=== PATIENT | male | born 1965 | race African-American/Black ===

== ENCOUNTER 2018-01-29 10:44 | Inpatient (IN) | payer BC, OTHER ==
--- NOTE | 2018-01-29 11:03 | PDOC ---
History of Present Illness - General Stated Complaint: FACIAL DROOP, IRREGULAR HEART BEAT Time Seen by Provider: 01/29/18 11:03 - History of Present Illness Initial Comments: 52 year old male with PMH of HTN, vertigo, and cervical spine disease presenting with left eye droop and left sided facial parasthesias at 10:42 which mostly self resolved after a few seconds. However, he is still complaining of some left sided facial paresthesias on on interview. 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 He also has a right femoral stent for difficulty walking in the past. 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 Denies any headache, visual symptoms, chest pain, SOB, weakness, or other symptoms. 01/29/18 12:06 NIH Stroke Scale - Last Known Well Date/Time & Onset Date Last Known Well: 01/29/18 Time Last Known Well: 10:41 - Initial Evaluation Level of consciousness: Alert Ask patient the month and their age: Answers both correctly Ask patient to open & close eyes; make fist and let go: Obeys both correctly Best gaze (horizontal eye movement): Normal Visual field testing: No visual field loss Facial paresis (Show teeth/raise eyebrows/close eyes tight): Normal symmetrical movement Motor Function: Left Arm: Normal Motor Function: Right Arm: Normal (extends arm 90 (or 45) degrees for 10 seconds without drift Motor Function: Left Leg: Normal (extends leg 30 degrees for 5 seconds without drift) Motor Function: Right Leg: Normal (extends leg 30 degrees for 5 seconds without drift) Limb Ataxia: No ataxia Sensory(Use pinprick test arms,legs,trunk,face/side to side): Mild to moderate decrease in sensation (Sensation at his baseline but states he has crhonic paresthesias in his left arm and a new paresthesia on the left side of his face. ) Best language (Describe picture, name items, read sentences): No Aphasia Dysarthria (read several words): Normal articulation Extinction and Inattention: No abnormality - Total Score NIH Stroke Scale Score: 1 Past History - Past Medical History Allergies/Adverse Reactions: Allergies Allergy/AdvReac Type Severity Reaction Status Date / Time Penicillins Allergy Verified 01/29/18 10:52 Home Medications: Ambulatory Orders Hydrochlorothiazide [Hctz -] 25 mg PO DAILY 01/29/18 COPD: No HTN: Yes - Surgical History Gastric Stapling: Yes (lap band) - Suicide/Smoking/Psychosocial Hx Smoking History: Never smoked Substance Use Type: Alcohol Review of Systems - Review of Systems Constitutional: No: Chills, Diaphoresis, Fever, Loss of Appetite HEENTM: No: Eye Pain, Blurred Vision, Tearing, Double Vision Respiratory: No: Cough, Orthopnea, Shortness of Breath Cardiac (ROS): No: Chest Pain, Edema, Irregular Heart Rate ABD/GI: No: Diarrhea, Nausea, Poor Appetite, Vomiting : No: Dysuria, Discharge Musculoskeletal: No: Muscle Pain, Muscle Weakness Integumentary: No: Bruising, Lesions, Lumps Neurological: Yes: Paresthesia. No: Headache, Numbness, Tingling, Weakness, Unsteady Gait, Ataxia, Dizziness Psychiatric: Yes: Anxiety Endocrine: No: Increased Hunger, Increased Thirst Hematologic/Lymphatic: No: Anemia, Easy Bruising, Bleeding Diathesis *Physical Exam - Vital Signs Last Vital Signs Temp Pulse Resp BP Pulse Ox 98 F 82 18 145/86 99 01/29/18 10:47 01/29/18 10:47 01/29/18 10:47 01/29/18 10:47 01/29/18 10:47 - Physical Exam General Appearance: Yes: Nourished, Appropriately Dressed. No: Apparent Distress HEENT: positive: EOMI, BRANDY, Normal ENT Inspection, Normal Voice Neck: positive: Trachea midline, Normal Thyroid, Supple. negative: Tender, Rigid Respiratory/Chest: positive: Lungs Clear, Normal Breath Sounds. negative: Chest Tender, Respiratory Distress, Accessory Muscle Use Cardiovascular: positive: Regular Rhythm Gastrointestinal/Abdominal: positive: Normal Bowel Sounds, Flat, Soft. negative : Tender Lymphatic: negative: Adenopathy, Tenderness Musculoskeletal: positive: Normal Inspection. negative: CVA Tenderness Extremity: positive: Normal Capillary Refill, Normal Inspection, Normal Range of Motion. 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 Head CT negative and labs WNL. Dr. Rodney and Dr. Ortiz evaluated patient and he is being admitted for stroke workup. EKG showing rate 81, AK 162, QRS 92, QTc 429, and normal axis without ST or T wave changes. 01/29/18 13:15 *DC/Admit/Observation/Transfer Diagnosis at time of Disposition: TIA (transient ischemic attack), Palpitation HTN (hypertension) Qualifiers: Hypertension type: essential hypertension Qualified Code(s): I10 - Essential ( primary) hypertension - Discharge Dispostion Condition at time of disposition: Stable Decision to Admit order: Yes - Referrals - Patient Instructions - Post Discharge Activity
[2018-01-29] MEDS ORDERED: SODIUM CHLORIDE 1,000 ML IV SCH (11:30)
--- NOTE | 2018-01-29 11:43 | PDOC ---
Attending Attestation - Resident Resident Name: Georges Lopez - ED Attending Attestation I have performed the following: I have examined & evaluated the patient, The case was reviewed & discussed with the resident, I agree w/resident's findings & plan, Exceptions are as noted - HPI HPI: 01/29/18 11:36 52yo M hx HTN, intermittent palpitations, throat ca 2yrs ago (now in remission) presents with 1 minute of L eyelid drooping at 10:42A that has resolved since. Pt also reports palpitaitons and found his HR jumped from 80s to 120s. Currently states the L side of his face feels "different." Denies any other deficits. Denies headache. Denies dizziness. Denies any chest pain or shortness of breath. Patient reports an episode of transient vision loss a few months ago that resolved on its own. He was diagnosed with a complex migraine at the time. Denies fevers, chills, neck stiffness or recent traveling. - Physicial Exam PE: 01/29/18 11:43 GENERAL: Awake, alert, and fully oriented, in no acute distress HEAD: No signs of trauma EYES: PERRLA, EOMI, sclera anicteric, conjunctiva clear ENT: Auricles normal inspection, hearing grossly normal, nares patent, oropharynx clear without exudates. Moist mucosa NECK: Normal ROM, supple, no lymphadenopathy, JVD, or masses LUNGS: Breath sounds equal, clear to auscultation bilaterally. No wheezes, and no crackles HEART: Regular rate and rhythm, normal S1 and S2, no murmurs, rubs or gallops ABDOMEN: Soft, nontender, normoactive bowel sounds. No guarding, no rebound. No masses EXTREMITIES: Normal range of motion, no edema. No clubbing or cyanosis. No cords, erythema, or tenderness NEUROLOGICAL: Normal speech, decreased sensation L CN5 distribution, negative pronator drift, 5/5 strength in all 4 extremities, normal sensation to light touch in all 4 extremities, normal cerebellar exam, normal gait, normal reflexes and tone SKIN: Warm, Dry, normal turgor, no rashes or lesions noted. - Medical Decision Making 01/29/18 11:44 52yo M hx HTN presents to the ED with transient L eye droop. Vitals with mild htn, otherwise normal. Exam with decreased sensation to L facial nerve. NIHSS 1. Case discussed with Dr. Rodney but Dr. Lopez, will hold off on TPA given resolved sxs and low stroke scale. 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 Plan: -stoke labs -CTH -neuro recs -admit
[2018-01-29 11:58] LABS: URINE APPEARANCE CLEAR; URINE BILIRUBIN NEGATIVE (<2.0 mg/dL); URINE COLOR LTYELLOW; URINE GLUCOSE (UA) NEGATIVE (NEGATIVE); URINE KETONE NEGATIVE (NEGATIVE); URINE LEUK ESTERASE NEGATIVE (NEGATIVE); URINE NITRITE NEGATIVE (NEGATIVE); URINE PROTEIN NEGATIVE (NEGATIVE); URINE UROBILINOGEN NEGATIVE mg/dL (0.2-1.0)
[2018-01-29 12:00] LABS: BASO % 1.1 % (0-2.0); HEMATOCRIT 44.6 % (35.4-49); HEMOGLOBIN 15.2 GM/dL (11.7-16.9); LYMPH % 24.3 % (8-40); MCH 30.6 pg (25.7-33.7); MCHC 34.1 g/dl (32.0-35.9); MEAN CELL VOLUME 89.7 fl (80-96); MEAN PLT VOLUME 7.5 fl (7.5-11.1); NEUT % 62.6 % (42.8-82.8); PLATELET COUNT 243 K/MM3 (134-434); RBC 4.97 M/mm3 (4.00-5.60); RDW 13.4 % (11.9-15.9); WHITE BLOOD COUNT 3.1 K/mm3 (4.0-10.0)
--- NOTE | 2018-01-29 12:25 | HP ---
Admitting History and Physical - Primary Care Physician PCP: Jerry Wilkinson MD - Admission Chief Complaint: Left Eye lid droop and Facial numbness History of Present Illness: 52 yrs old man H/O Morbid Obesity S/P Gastric Band ligation in 2010, B//L TKR, Rt LE Stenting (Femoral A?), Left eye transient loss of vision for few seconds TIA/Migraine 208 diagnosed migraine taking ASA, Mid HTN, Left Vocal cord nodule s/p resection and RT family history of premature atherosclerosis ( Brother had a stroke at the age of 58 , H/O anxiety and Panic attacks, patient has remote H/O smoking ,excellent exercise tolerance regular exercises in a GYM on treadmill, today present after an episode of Left eye lid drooping for 3-5 seconds with Left sided facial numbness that persisted for a while around 10.42 am, patient monitors his HR on his smart phone , noticed some palpitation and recorded HR 127/mt came to Ed for evaluation CODE Stroke was called , meantime symptoms resolved, CT haed -ve, at the time of examination asymptomatic denies any focal motor or sensory symptoms, no c/o head ache, diplopia, chest pain, palpitation. Evaluated by Neurologist in the ED recommenced Hospitalization for TIA/stroke w/u. 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 Cardiovascular: Yes: HTN, Hyperlipdemia Psych: Yes: Anxiety - Past Surgical History Past Surgical History: Yes: Bypass (Femoral stenting ?), Joint Replacement, Vein Stripping/Ligation - Smoking History Smoking history: Former smoker (Quit yrs ago) - Alcohol/Substance Use Hx Alcohol Use: No - Social History Usual Living Arrangement: Yes: With Spouse ADL: Independent History of Recent Travel: No Home Medications - Allergies Allergies/Adverse Reactions: Allergies Allergy/AdvReac Type Severity Reaction Status Date / Time Penicillins Allergy Verified 01/29/18 10:52 - Home Medications Home Medications: Ambulatory Orders Hydrochlorothiazide [Hctz -] 25 mg PO DAILY 01/29/18 Family Disease History - Family Disease History Family Disease History: Diabetes: Mother, Other: Father (Ca Larynx), Brother ( Stroke) Review of Systems - Review of Systems Constitutional: denies: Chills, Diaphoresis, Fever, Lethargy Eyes: denies: Blind Spots, Blurred Vision, Double Vision, Eye Pain, Floaters, Photophobia, Recent Change in Vision HENT: denies: Difficult Swallowing, Ear Discharge, Ear Pain Neck: denies: Decreased ROM, Lumps, Pain on Movement Cardiovascular: reports: Palpitations. denies: Chest Pain, Edema Respiratory: denies: No Symptoms, Cough, Exercise Intolerance, Hemoptysis, Orthopnea Gastrointestinal: denies: Abdominal Pain, Bloating, Constipation, Diarrhea Genitourinary: denies: Burning, Discharge, Dysuria, Flank Pain Breasts: reports: No Symptoms Reported Musculoskeletal: denies: Back Pain, Crepitus, Decreased ROM Neurological: reports: Numbness (Left Facial Left Eye droop). denies: Change in LOC, Change in Speech, Confusion Endocrine: denies: Excessive Sweating, Flushing, Increased Hunger Hematology/Lymphatic: denies: Easily Bruised, Excessive Bleeding, Swollen Glands Psychiatric: reports: Anxiety. 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 in the past, Rt LE stenting ABCD2 score 0 low risk for stroke in next 48 hours admit for observation, consider high dos Lipitor 80 mg once, ASA 81 mg daily, Neuro check, Telemonitoring, Hold HCTZ, ECHO, Carotid Ultrasound, MRI MRA Neck, consider event monitor if imaging shows a stroke Code(s): G45.9 - TRANSIENT CEREBRAL ISCHEMIC ATTACK, UNSPECIFIED (2) HTN (hypertension) Assessment/Plan: Well controlled hold HCTZ for suspected stroke Code(s): I10 - ESSENTIAL (PRIMARY) HYPERTENSION (3) Palpitation Assessment/Plan: Obsessional , telemonitor , if symptoms persists needs out patient w/u for paroxysmal tachy arrhythmia F/U ECHO, TSH although denies will check U tox Code(s): R00.2 - PALPITATIONS (4) Femoral artery occlusion, right Assessment/Plan: ? Rt F artery stenting unable to provide much information will F/U LE arterial doppler. Code(s): I70.201 - UNSP ATHSCL [place] ARTERIES OF EXTREMITIES, RIGHT LEG
[2018-01-29 12:32] LABS: INR 1.08 (0.83-1.09); PROTHROMBIN TIME (PATIENT) 12.2 SEC (9.7-13.0)
[2018-01-29 12:48] LABS: ALBUMIN 3.9 g/dl (3.4-5.0); ANION GAP 9 MMOL/L (8-16); BLOOD UREA NITROGEN 11 mg/dL (7-18); CALCIUM 9.1 mg/dL (8.5-10.1); CHLORIDE 102 mmol/L (98-107); CHOLESTEROL 209 mg/dL (50-200); CO2 30 mmol/L (21-32); CREATININE 0.9 mg/dL (0.55-1.3); GLUCOSE,RANDOM 77 mg/dL (74-106); POTASSIUM 3.5 mmol/L (3.5-5.1); SGOT/AST 27 U/L (15-37); SGPT/ALT 22 U/L (13-61); SODIUM 141 mmol/L (136-145); TOT PROT 7.1 g/dl (6.4-8.2); TRIGLYCERIDES 90 mg/dL (0-150)
[2018-01-29 12:49] LABS: ALK PHOS 42 U/L (45-117); HDL CHOLESTEROL 100 mg/dL (40-60)
[2018-01-29] MEDS ORDERED: ASPIRIN 81 MG CHEWABLE TABLETS PO ONE (13:05)
[2018-01-29] MEDS ORDERED: ATORVASTATIN CA 80 MG TABLET (FP) PO ONE (13:06)
[2018-01-29] MEDS ORDERED: ASPIRIN 81 MG CHEWABLE TABLETS ONE (13:15)
[2018-01-29] MEDS ORDERED: ATORVASTATIN CA 80 MG TABLET (FP) ONE (13:15)
--- NOTE | 2018-01-29 13:41 | CONSULT ---
Consult - text type - Consultation Consultation Note: Neurology History of Present Illness 52 year old male with PMH of HTN, vertigo, and cervical spine disease presented with left eye droop and left sided facial parasthesias at 10:42AM which essentially self resolved after a few seconds. Makenzie gold called by , CT head completed in ER and no acute changes. Was c/o left sided facial paresthesias was not experiencing this during my evaluation at bedside in ER. Not TPA candidate deficits essentially resolved. 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 He also has a right femoral stent for difficulty walking in the past. 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 Denied any further symptoms. Admitted for further work up including MRI brain. Past History - Past Medical History Allergies/Adverse Reactions: Allergies Allergy/AdvReac Type Severity Reaction Status Date / Time Penicillins Allergy Verified 01/29/18 10:52 Home Medications: Ambulatory Orders Hydrochlorothiazide [Hctz -] 25 mg PO DAILY 01/29/18 COPD: No HTN: Yes - Surgical History Gastric Stapling: Yes (lap band) - Suicide/Smoking/Psychosocial Hx Smoking History: Never smoked Substance Use Type: Alcohol Review of Systems - Review of Systems Constitutional: No: Chills, Diaphoresis, Fever, Loss of Appetite HEENTM: No: Eye Pain, Blurred Vision, Tearing, Double Vision Respiratory: No: Cough, Orthopnea, Shortness of Breath Cardiac (ROS): No: Chest Pain, Edema, Irregular Heart Rate ABD/GI: No: Diarrhea, Nausea, Poor Appetite, Vomiting : No: Dysuria, Discharge Musculoskeletal: No: Muscle Pain, Muscle Weakness Integumentary: No: Bruising, Lesions, Lumps Neurological: Yes: Paresthesia. No: Headache, Numbness, Tingling, Weakness, Unsteady Gait, Ataxia, Dizziness Psychiatric: Yes: Anxiety Endocrine: No: Increased Hunger, Increased Thirst Hematologic/Lymphatic: No: Anemia, Easy Bruising, Bleeding Diathesis *Physical Exam Vital Signs Period Temp Pulse Resp BP Sys/Sun Pulse Ox Last 24 Hr 98 F-98.1 F 77-86 16-20 128-145/76-86 98-99 - Physical Exam General Appearance: Yes: Nourished, Appropriately Dressed. No: Apparent Distress HEENT: positive: EOMI, BRANDY, Normal ENT Inspection, Normal Voice Neck: positive: Trachea midline, Normal Thyroid, Supple. negative: Tender, Rigid Respiratory/Chest: positive: Lungs Clear, Normal Breath Sounds. negative: Chest Tender, Respiratory Distress, Accessory Muscle Use Cardiovascular: positive: Regular Rhythm Gastrointestinal/Abdominal: positive: Normal Bowel Sounds, Flat, Soft. negative : Tender Lymphatic: negative: Adenopathy, Tenderness Musculoskeletal: positive: Normal Inspection. negative: CVA Tenderness Extremity: positive: Normal Capillary Refill, Normal Inspection, Normal Range of Motion. negative: Tender Integumentary: positive: Normal Color, Dry, Warm Neurologic: Awake, alert, cooperative, CN intact, strenght intact no drift in upper or lower ext, sensory intact, finger to nose normal CBCD WBC 3.1 K/mm3 (4.0-10.0) L 01/29/18 11:30 RBC 4.97 M/mm3 (4.00-5.60) 01/29/18 11:30 Hgb 15.2 GM/dL (11.7-16.9) 01/29/18 11:30 Hct 44.6 % (35.4-49) 01/29/18 11:30 MCV 89.7 fl (80-96) 01/29/18 11:30 MCHC 34.1 g/dl (32.0-35.9) 01/29/18 11:30 RDW 13.4 % (11.9-15.9) 01/29/18 11:30 Plt Count 243 K/MM3 (134-434) 01/29/18 11:30 MPV 7.5 fl (7.5-11.1) 01/29/18 11:30 CMP Sodium 141 mmol/L (136-145) 01/29/18 11:30 Potassium 3.5 mmol/L (3.5-5.1) 01/29/18 11:30 Chloride 102 mmol/L (98-107) 01/29/18 11:30 Carbon Dioxide 30 mmol/L (21-32) 01/29/18 11:30 Anion Gap 9 MMOL/L (8-16) 01/29/18 11:30 BUN 11 mg/dL (7-18) 01/29/18 11:30 Creatinine 0.9 mg/dL (0.55-1.3) 01/29/18 11:30 Creat Clearance w eGFR > 60 (>60) 01/29/18 11:30 Random Glucose 77 mg/dL (74-106) 01/29/18 11:30 Calcium 9.1 mg/dL (8.5-10.1) 01/29/18 11:30 Total Bilirubin 1.0 mg/dL (0.2-1.0) 01/29/18 11:30 AST 27 U/L (15-37) 01/29/18 11:30 ALT 22 U/L (13-61) 01/29/18 11:30 Alkaline Phosphatase 42 U/L (45-117) L 01/29/18 11:30 Total Protein 7.1 g/dl (6.4-8.2) 01/29/18 11:30 Albumin 3.9 g/dl (3.4-5.0) 01/29/18 11:30 CARDIAC ENZYMES Creatine Kinase 223 IU/L (26-308) 01/29/18 11:30 Troponin I < 0.02 ng/ml (0.00-0.05) 01/29/18 11:30 Plan: 52 year old male with PMH of HTN, vertigo, and cervical spine disease presented with left eye droop and left sided facial parasthesias at 10:42AM which essentially self resolved after a few seconds. Code gold called by time study clerk, CT head completed in ER and no acute changes. Was c/o left sided facial paresthesias was not experiencing this during my evaluation at bedside in ER. Not TPA candidate deficits essentially resolved. 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 He also has a right femoral stent for difficulty walking in the past. 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 Denied any further symptoms. Admitted for further work up including MRI brain. Cardiac evaluation, school bus monitor recommended for arryhtmia. Monitor blood pressure , can allow up 160/90 for now. ASA 81mg rec'd for now. Carotid Doppler, echo recommended. Lipid profile, DVT ppx. Critical care time 35 mins.
[2018-01-29 14:43] LABS: CHOLESTEROL 188 mg/dL (50-200); HDL CHOLESTEROL 94 mg/dL (40-60); TRIGLYCERIDES 86 mg/dL (0-150)
[2018-01-29 15:15] VITALS: BP 130/87; PULSE 78; TEMP 97.7
--- NOTE | 2018-01-29 16:34 | DS ---
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 Normal speech Cranial N 2-12 are normal Motor %/% in all extermities Sensory:Both lateral Colum and Post are intact DTR: B/L symmetrical intact Planter B/L Flexor No Cerbellar signs Labs: CBC, BMP 01/29/18 11:30 01/29/18 11:30 Discharge Summary Reason For Visit: TIA, PALPITATION Current Active Problems Femoral artery occlusion, right (Acute) HTN (hypertension) (Acute) Palpitation (Acute) TIA (transient ischemic attack) (Acute) Hospital Course: 52 yrs old man H/O Morbid Obesity S/P Gastric Band ligation in 2010, B//L TKR, Rt LE Stenting (Femoral A?), Left eye transient loss of vision for few seconds TIA/Migraine 208 diagnosed migraine taking ASA, Mid HTN, Left Vocal cord nodule s/p resection and RT family history of premature atherosclerosis ( Brother had a stroke at the age of 58 , H/O anxiety and Panic attacks, patient has remote H/O smoking ,excellent exercise tolerance regular exercises in a GYM on treadmill, today present after an episode of Left eye lid drooping for 3-5 seconds with Left sided facial numbness that persisted for a while around 10.42 am, patient monitors his HR on his smart phone , noticed some palpitation and recorded HR 127/mt came to Ed for evaluation CODE Stroke was called , meantime symptoms resolved, CT haed -ve, at the time of examination asymptomatic denies any focal motor or sensory symptoms, no c/o head ache, diplopia, chest pain, palpitation. Evaluated by Neurologist in the ED recommenced Hospitalization for TIA/stroke w/u. Carotid Dopplers reported normal, awaiting MRI Brain patient decided to sign AMA, I counselled the patient with possible adverse outcome including worsening symptoms, stroke, neurological deficit and potential fatality, patient is AOX3 understood all consequences has ability to make a becision about his medical , patient signed AMA and Left with his . Condition: Stable - Instructions Diet, Activity, Other Instructions: Low salt low cholesterol Referrals: Jerry Wilkinson MD, MD [Primary Care Provider] - 1 Week Disposition: AGAINST MEDICAL ADVICE - Home Medications Comprehensive Discharge Medication List: Ambulatory Orders Aspirin Coated [Ecotrin -] 81 mg PO DAILY tablet.ec 01/29/18 Lipitor 40 mg Daily Time Spent 39 minutes
--- NOTE | 2018-01-29 21:11 | EKG ---
Test Reason : Blood Pressure : / mmHG Vent. Rate : 081 BPM Atrial Rate : 081 BPM P-R Int : 162 ms QRS Dur : 092 ms QT Int : 370 ms P-R-T Axes : 081 053 061 degrees QTc Int : 429 ms NORMAL SINUS RHYTHM NORMAL ECG NO PREVIOUS ECGS AVAILABLE Confirmed by KAILYN MONTELONGO MD ([id number]) on 01/29/2018 9:11:00 PM Referred By: Confirmed By:KAILYN MONTELONGO MD
[2018-01-29] MEDS ORDERED: ATORVASTATIN CA 40 MG TABLET (FP) PO SCH (22:00)
[2018-01-30] MEDS ORDERED: ASPIRIN COATED 81 MG TABLET.EC PO SCH (10:00)
== END 2018-01-29 17:00 | disposition left against medical advice (07) | DRG 69 ==
LOC: JER 10:44 → JERBED 11:58 → J4W 15:03
PROVIDERS: ADMIT Internal Medicine; ATTEND Internal Medicine
DX: G45.9 Transient cerebral ischemic attack, unspecified (principal); I10 Essential (primary) hypertension; R00.2 Palpitations
CPT/HCPCS: 36415; 70450-TC; 80053; 80061; 81003; 82465; 82550; 82553; 83718; 83721; 84478; 84484; 85025; 85610; 86850; 86900; 86901; 93005; 93010; 93880-TC; 93971-TC; 99285-25; J7030

== ENCOUNTER 2019-05-14 12:32 | Emergency (ER) | payer BC ==
[2019-05-14 12:39] VITALS: BP 142/90; PULSE 80; TEMP 97.4; BMI 30.8
--- NOTE | 2019-05-14 12:42 | PDOC ---
Rapid Medical Evaluation Time Seen by Provider: 05/14/19 12:38 Medical Evaluation: Allergies Allergy/AdvReac Type Severity Reaction Status Date / Time Penicillins Allergy Verified 01/29/18 10:52 05/14/19 12:38 CC: "I think I have the flu." PE: OP mildly erythematous. No exudates. Lungs CTAB. Orders: nothing Patient will proceed to ED for further evaluation. Discharge Disposition - Diagnosis Influenza-like illness - Referrals - Patient Instructions - Post Discharge Activity
--- NOTE | 2019-05-14 12:55 | PDOC ---
History of Present Illness - General Chief Complaint: Pain Stated Complaint: LOWER BACK PAIN Time Seen by Provider: 05/14/19 12:38 - History of Present Illness Initial Comments: 05/14/19 12:53 53-year-old male without comorbidities presents for evaluation of flulike symptoms x1 day. Father is a sick contact at home with positive influenza test Past History - Past Medical History Allergies/Adverse Reactions: Allergies Allergy/AdvReac Type Severity Reaction Status Date / Time Penicillins Allergy Verified 05/14/19 12:39 Home Medications: Ambulatory Orders Aspirin Coated [Ecotrin -] 81 mg PO DAILY tablet.ec 01/29/18 Oseltamivir Phosphate [Tamiflu] 75 mg PO BID #10 capsule 05/14/19 COPD: No HTN: Yes - Surgical History Gastric Stapling: Yes (lap band) - Psycho Social/Smoking Cessation Hx Smoking History: Never smoked Hx Alcohol Use: No Substance Use Type: Alcohol Review of Systems - Review of Systems Constitutional: Yes: Chills, Malaise, Night Sweats. No: Fever HEENTM: Yes: Nose Congestion Respiratory: Yes: Cough *Physical Exam - Vital Signs Last Vital Signs Temp Pulse Resp BP Pulse Ox 97.4 F L 80 18 142/90 99 05/14/19 12:35 05/14/19 12:35 05/14/19 12:35 05/14/19 12:35 05/14/19 12:35 - Physical Exam 05/14/19 12:54 GENERAL: The patient is awake, alert, and fully oriented, in no acute distress. HEAD: Normal with no signs of trauma. EYES: sclera anicteric, conjunctiva clear. ENT: Ears normal tympanic membranes normal oropharynx clear uvula midline NECK: Normal range of motion LUNGS: Breath sounds equal, clear to auscultation bilaterally. No wheezes, and no crackles. HEART: S1 and S2 without murmur, rub or gallop. ABDOMEN: Soft, nontender, normoactive bowel sounds. No guarding, no rebound. No masses. EXTREMITIES: Normal range of motion, no edema. No clubbing or cyanosis. No cords, erythema, or tenderness. NEUROLOGICAL: Cranial nerves II through XII grossly intact. Normal speech, normal gait. PSYCH: Normal mood, normal affect. SKIN: Warm, Dry, normal turgor, no rashes or lesions noted. Medical Decision Making - Medical Decision Making 05/14/19 12:54 We will treat with Tamiflu based on sick contact positive flu Discharge - Discharge Information Problems reviewed: Yes Clinical Impression/Diagnosis: Influenza-like illness, Influenza Condition: Stable Disposition: HOME - Admission No - Additional Discharge Information Prescriptions: Oseltamivir Phosphate [Tamiflu] 75 mg PO BID #10 capsule - Follow up/Referral Referrals: Dagoberto Espino MD [Staff Physician] - - Patient Discharge Instructions Patient Printed Discharge Instructions: Influenza Additional Instructions: Tylenol Motrin for any body aches or fevers as directed. Return to the emergency room for worsening symptoms. Without fail please follow-up with your primary care physician in 2 to 3 days for further evaluation and treatment options. - Post Discharge Activity
== END 2019-05-14 13:10 | disposition home or self-care (01) ==
LOC: JERFT 12:32
DX: J11.1 Influenza due to unidentified influenza virus with other respiratory manifestations (principal); I10 Essential (primary) hypertension
CPT/HCPCS: 99281-25